=== PATIENT | female | born 1960 | race Caucasian/White ===

== ENCOUNTER 2016-08-05 15:47 | Emergency (ER) | payer SELFPAY ==
[2016-08-05] MEDS ORDERED: Famotidine 20 MG/2 ML SDV IVPUSH ONE (16:09)
[2016-08-05] MEDS ORDERED: Aspirin 81 MG Tab.Chew PO ONE (16:09)
[2016-08-05] MEDS ORDERED: Sodium Chloride 0.9% 2.5 ML Syringe FLUSH PRN ×2 (16:09)
[2016-08-05] MEDS ORDERED: Sodium Chloride 0.9% 10 ML Syringe FLUSH PRN (16:09)
[2016-08-05] MEDS ORDERED: Nitroglycerin 0.4 MG Tab.SL ONE (16:11)
--- NOTE | 2016-08-05 16:11 | EDM.PDOC ---
ED HPI GENERAL MEDICAL PROBLEM - General Chief Complaint: Chest Pain Stated Complaint: CP Time Seen by Provider: 08/05/16 15:59 - History of Present Illness INITIAL COMMENTS - FREE TEXT/NARRATIVE: HISTORY AND PHYSICAL: History of present illness: The patient is a 56-year-old female with a history of hypertension and who has had several ER visits here in admissions for chest pain and presents with complaints of pain just to the left of her sternum which started about an hour ago while at rest. The patient states that 2 hours ago she had 2 episodes of small vomiting and did not have any associated abdominal pain shortness of breath or chest pain with that. She is not sure if she ate something to upset her stomach. She currently only feels slightly nauseated with the chest pain but she has no shortness of breath or diaphoresis. She says this is very typical of her usual chest pain for which I have seen her back in April of 2014 in the ER as well as being seen in December of 2015. The patient has followed up with the online activist at [facility] Dr. Smiley and she states he is supposed to schedule an outpatient chemical stress test with him. She last saw him in March of this year and states that he said everything was going well but wanted to do the stress test. The patient has had 2 heart caths in the past the last one in 2011 both of which she reports as negative. The patient states that she still gets episodic chest pain and has had that on a regular basis and has nitroglycerin that she uses at home if needed. The patient 's recent trauma or upper respiratory symptoms which he describes the discomfort to me as for its its location and character she states is the same chest pain she always has and there is nothing new or different about it. She has no leg pain or swelling. The patient is still smoking cigarettes but has cut back to half pack a day and denies social drug use. Currently she rates the pain as a 6/10 and she states that she did take 2 sublingual nitros prior to coming here. Review of systems: As per history of present illness and below otherwise all systems reviewed and negative. Past medical history: As per history of present illness and as reviewed below otherwise noncontributory. Surgical history: As per history of present illness and as reviewed below otherwise noncontributory. Social history: No reported history of drug or alcohol abuse. Family history: As per history of present illness and as reviewed below otherwise noncontributory. Physical exam: General: Well-developed well-nourished female who is nontoxic and speaking clearly and easily in the ED. This has been notified of these HEENT: Atraumatic, normocephalic, negative for conjunctival pallor or scleral icterus, mucous membranes moist, throat clear, neck supple, nontender, trachea midline. Lungs: Clear to auscultation, breath sounds equal bilaterally, chest nontender. Heart: S1S2, regular, negative for clicks, rubs, or JVD. Abdomen: Soft, nondistended, nontender. Negative for masses or hepatosplenomegaly. Negative for costovertebral tenderness. Pelvis: Stable nontender. Genitourinary: Deferred. Rectal: Deferred. Extremities: Atraumatic, negative for cords or calf pain. Neurovascular unremarkable. No pedal edema Neuro: Awake, alert, oriented. Cranial nerves II through XII unremarkable. Cerebellum unremarkable. Motor and sensory unremarkable throughout. Exam nonfocal. Diagnostics: EKG--today's was compared with one done in December of 2015 and revealed no changes from the old one Chest x-ray CBC CMP amylase lipase troponin Therapeutics: Aspirin sublingual nitroglycerin IV O2 monitor 1720: The patient was pain-free after 3 sublingual nitros and I discussed testing results with the patient. At this point the patient is aware of her negative lab testing and I offered her observation admission which she is declining at this time. She states that she would rather go home and followup with either Dr. Smiley or her provider at [facility]. I stressed to her my concerns about this repeated behavior of coming to the ER for chest pain getting a workup and then not staying to complete the workup appropriately and she states understanding. She also is aware of my concerns about the next 12 to 24-hour is by going home and she accepts those concerns. We discussed the risk factors of this choice and she accepts them. Advised her to call make followup arrangements and to return here as needed. Patient is with daughter at bedside. Impression: Chest pain refusing admission with history of angina Definitive disposition and diagnosis as appropriate pending reevaluation and review of above. Mid-Sternal Chest Pain Score (Numeric/FACES): 7 - Related Data Allergies Allergy/AdvReac Type Severity Reaction Status Date / Time Penicillins Allergy Hives Verified 08/05/16 16:01 nickel Allergy Hives Uncoded 12/01/14 10:18 Home Meds: Home Meds Aspirin [Halfprin] 81 mg PO DAILY 04/24/14 [History] Metoprolol Succinate [Toprol XL] 25 mg PO DAILY 08/05/16 [History] Past Medical History Cardiovascular History: Reports: High Cholesterol, Hypertension, SD Respiratory History: Reports: None Gastrointestinal History: Reports: None Genitourinary History: Reports: Renal Calculus, UTI, Recurrent INSURANCE PROFESSIONAL History: Reports: None Musculoskeletal History: Reports: Amputation Other Neuro History: 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 Psychiatric History: Reports: None Endocrine/Metabolic History: Reports: None Dermatologic History: Reports: None - Infectious Disease History Infectious Disease History: Reports: Chicken Pox - Past Surgical History HEENT Surgical History: Reports: Tonsillectomy Female Surgical History: Reports: Section, Hysterectomy Other Musculoskeletal Surgeries/Procedures:: ankle surgery Social & Family History - Family History Family Medical History: Noncontributory - Tobacco Use Smoking Status *Q: Current Every Day Smoker Years of Tobacco use: 40 Packs/Tins Daily: 0.5 Used Tobacco, but Quit: No Second Hand Smoke Exposure: No - Caffeine Use Caffeine Use: Reports: None - Alcohol Use Days Per Week of Alcohol Use: 5 Number of Drinks Per Day: 4 Total Drinks Per Week: 20 - Recreational Drug Use Recreational Drug Use: No Drug Use in Last 12 Months: No ED ROS GENERAL - Review of Systems Review Of Systems: ROS reveals no pertinent complaints other than HPI. ED EXAM, GENERAL - Physical Exam Exam: See Below (See dictation) Course - Vital Signs Last Recorded V/S: Last Vital Signs Temp 36.1 C 08/05/16 15:55 Pulse 58 L 08/05/16 17:14 Resp 16 08/05/16 17:14 BP 131/66 08/05/16 17:14 Pulse Ox 94 L 08/05/16 17:14 - Orders/Labs/Meds Orders: Active Orders 24 hr Category Date Time Status Cardiac Monitoring [RC] . DIRECTED Care 08/05/16 16:09 Active EKG Documentation Completion [RC] STAT Care 08/05/16 16:09 Active Oxygen Therapy [RC] ASDIRECTED Care 08/05/16 16:09 Active Pulse Oximetry [RC] ASDIRECTED Care 08/05/16 16:09 Active Chest 1V Frontal [CR] Stat Exams 08/05/16 16:09 Taken Sodium Chloride 0.9% [Normal Saline] 1,000 ml Med 08/05/16 16:20 Active IV ASDIRECTED Sodium Chloride 0.9% [Saline Flush] Med 08/05/16 16:09 Active 10 ml FLUSH ASDIRECTED PRN Sodium Chloride 0.9% [Saline Flush] Med 08/05/16 16:09 Active 2.5 ml FLUSH ASDIRECTED PRN Sodium Chloride 0.9% [Saline Flush] Med 08/05/16 16:09 Active 2.5 ml FLUSH ASDIRECTED PRN Saline Lock Insert [OM.PC] Stat Oth 08/05/16 16:09 Ordered Medication Orders Sodium Chloride (Normal Saline) 1,000 mls @ 999 mls/hr IV ASDIRECTED STEFFI Last Admin: 08/05/16 16:25 Dose: 999 mls/hr Sodium Chloride (Saline Flush) 2.5 ml FLUSH ASDIRECTED PRN PRN Reason: Keep Vein Open Sodium Chloride (Saline Flush) 10 ml FLUSH ASDIRECTED PRN PRN Reason: Keep Vein Open Sodium Chloride (Saline Flush) 2.5 ml FLUSH ASDIRECTED PRN PRN Reason: Keep Vein Open Labs: Laboratory Tests 08/05/16 08/05/16 08/05/16 Range/Units 15:53 15:53 15:53 WBC 8.32 (4.0-11.0) K/uL RBC 4.57 (4.30-5.90) M/uL Hgb 15.1 (12.0-16.0) g/dL Hct 45.2 (36.0-46.0) % MCV 98.9 H (80.0-98.0) fL MCH 33.0 H (27.0-32.0) pg MCHC 33.4 (31.0-37.0) g/dL RDW Std Deviation 47.2 (28.0-62.0) fl RDW Coeff of Dorian 13 (11.0-15.0) % Plt Count 263 (150-400) K/uL MPV 10.40 (7.40-12.00) fL Neut % (Auto) 68.0 (48.0-80.0) % Lymph % (Auto) 22.1 (16.0-40.0) % [place] % (Auto) 7.2 (0.0-15.0) % Eos % (Auto) 2.5 (0.0-7.0) % Baso % (Auto) 0.2 (0.0-1.5) % Neut # (Auto) 5.7 (1.4-5.7) K/uL Lymph # (Auto) 1.8 (0.6-2.4) K/uL [place] # (Auto) 0.6 (0.0-0.8) K/uL Eos # (Auto) 0.2 (0.0-0.7) K/uL Baso # (Auto) 0.0 (0.0-0.1) K/uL Nucleated RBC % 0.0 /100WBC Nucleated RBCs # 0 K/uL Sodium 140 (136-146) mmol/L Potassium 3.9 (3.5-5.1) mmol/L Chloride 108 (98-110) mmol/L Carbon Dioxide 22 (21-31) mmol/L BUN 8 (6.0-23.0) mg/dL Creatinine 0.9 (0.6-1.5) mg/dL Est Cr Clr Drug Dosing 62.80 mL/min Estimated GFR (MDRD) > 60.0 ml/min Glucose 115 H (60-110) mg/dL Calcium 9.5 (8.8-10.8) mg/dL Total Bilirubin 0.4 (0.1-1.5) mg/dL AST 23 (5-40) IU/L ALT 20 (8-54) IU/L Alkaline Phosphatase 84 (40-150) Troponin I < 0.10 (0.0-0.29) NG/ML Total Protein 6.9 (6.0-8.0) g/dL Albumin 4.3 (3.5-5.0) g/dL Globulin 2.6 (2.0-3.5) g/dL Albumin/Globulin Ratio 1.7 (1.3-2.8) Amylase 50 (10-90) U/L Lipase 31 (7-80) U/L Meds: Medications Generic Name Dose Route Start Last Admin Trade Name Freq PRN Reason Stop Dose Admin Sodium Chloride 1,000 mls @ 999 mls/hr 08/05/16 16:20 08/05/16 16:25 Normal Saline IV 999 mls/hr ASDIRECTED STEFFI Administration Sodium Chloride 2.5 ml 08/05/16 16:09 Saline Flush FLUSH ASDIRECTED PRN Keep Vein Open Sodium Chloride 10 ml 08/05/16 16:09 Saline Flush FLUSH ASDIRECTED PRN Keep Vein Open Sodium Chloride 2.5 ml 08/05/16 16:09 Saline Flush FLUSH ASDIRECTED PRN Keep Vein Open Discontinued Medications Generic Name Dose Route Start Last Admin Trade Name Freq PRN Reason Stop Dose Admin Aspirin 324 mg 08/05/16 16:09 08/05/16 16:16 Aspirin PO 08/05/16 16:10 324 mg ONETIME ONE Administration Aspirin Confirm 08/05/16 16:12 08/05/16 16:19 Aspirin Administered 08/05/16 16:13 Not Given Dose 324 mg .ROUTE .STK-MED ONE Famotidine 20 mg 08/05/16 16:09 08/05/16 16:33 Pepcid IVPUSH 08/05/16 16:10 20 mg ONETIME ONE Administration Nitroglycerin 0.4 mg 08/05/16 16:09 08/05/16 17:06 Nitrostat SL 08/05/16 16:10 0.4 mg ONETIME ONE Administration Nitroglycerin Confirm 08/05/16 16:11 08/05/16 16:19 Nitrostat Administered 08/05/16 16:12 Not Given Dose 0.4 mg .ROUTE .STK-MED ONE Nitroglycerin 0.5 gm 08/05/16 17:16 Nitro-Bid 2% TOP 08/05/16 17:17 ONETIME ONE Departure - Departure Time of Disposition: 17:30 Disposition: Home, Self-Care 01 Condition: good Clinical Impression: Anginal chest pain at rest, Care refused by patient - Discharge Information Forms: ED Department Discharge Additional Instructions: The following information is given to patients seen in the emergency department who are being discharged to home. This information is to outline your options for follow-up care. We provide all patients seen in our emergency department with a follow-up referral. The need for follow-up, as well as the timing and circumstances, are variable depending upon the specifics of your emergency department visit. If you don't have a primary care physician on staff, we will provide you with a referral. We always advise you to contact your personal physician following an emergency department visit to inform them of the circumstance of the visit and for follow-up with them and/or the need for any referrals to a consulting specialist. The emergency department will also refer you to a specialist when appropriate. This referral assures that you have the opportunity for followup care with a specialist. All of these measure are taken in an effort to provide you with optimal care, which includes your followup. Under all circumstances we always encourage you to contact your private physician who remains a resource for coordinating your care. When calling for followup care, please make the office aware that this follow-up is from your recent emergency room visit. If for any reason you are refused follow-up, please contact the emergency department at and ask to speak to the emergency department charge nurse. [address] [place] [address] Please continue all your home medications and call and followup with her provider at [facility] as well as your online activist. Return to ER as needed and as discussed - My Orders Last 24 Hours: My Active Orders 08/05/16 16:09 Cardiac Monitoring [RC] . DIRECTED EKG Documentation Completion [RC] STAT Oxygen Therapy [RC] ASDIRECTED Pulse Oximetry [RC] ASDIRECTED Chest 1V Frontal [CR] Stat Sodium Chloride 0.9% [Saline Flush] 10 ml FLUSH ASDIRECTED PRN Sodium Chloride 0.9% [Saline Flush] 2.5 ml FLUSH ASDIRECTED PRN Sodium Chloride 0.9% [Saline Flush] 2.5 ml FLUSH ASDIRECTED PRN Saline Lock Insert [OM.PC] Stat 08/05/16 16:20 Sodium Chloride 0.9% [Normal Saline] 1,000 ml IV ASDIRECTED - Assessment/Plan Last 24 Hours: My Active Orders 08/05/16 16:09 Cardiac Monitoring [RC] . DIRECTED EKG Documentation Completion [RC] STAT Oxygen Therapy [RC] ASDIRECTED Pulse Oximetry [RC] ASDIRECTED Chest 1V Frontal [CR] Stat Sodium Chloride 0.9% [Saline Flush] 10 ml FLUSH ASDIRECTED PRN Sodium Chloride 0.9% [Saline Flush] 2.5 ml FLUSH ASDIRECTED PRN Sodium Chloride 0.9% [Saline Flush] 2.5 ml FLUSH ASDIRECTED PRN Saline Lock Insert [OM.PC] Stat 08/05/16 16:20 Sodium Chloride 0.9% [Normal Saline] 1,000 ml IV ASDIRECTED
[2016-08-05] MEDS ORDERED: Aspirin 81 MG Tab.Chew ONE (16:12)
[2016-08-05] MEDS: Nitroglycerin 0.4 MG Tab.SL SL ONE ×3 (16:17→17:06)
[2016-08-05] MEDS ORDERED: Sodium Chloride 0.9% 1,000 ML IV SCH (16:20)
[2016-08-05 16:35] LABS: CHLORIDE,CL 108 mmol/L (98-110); SODIUM,NA 140 mmol/L (136-146)
[2016-08-05] MEDS ORDERED: Nitroglycerin 2% Oint 1 GM UD Packet TOP ONE (17:16)
[2016-08-05 17:56] VITALS: BP 125/69
--- NOTE | 2016-08-06 10:13 | CR ---
EXAM DATE: 08/05/16 PATIENT'S AGE: 56 Patient: JIA DIEGO Facility: [place], [place] Site . Site : [id number] Study: XRay Chest [id number]/16/2017 4:57:38 PM Ordering Physician: Horacio Dumont Final Report: INDICATION: Chest pain. TECHNIQUE: Chest radiograph 1 view COMPARISON: 01/06/2016. FINDINGS: Cardiovascular and mediastinum: The heart silhouette is normal in size and morphology. The mediastinum is normal in appearance. Lungs and pleural spaces: Both lungs are unremarkable in appearance. No sign of pleural effusion seen. No pneumothorax is identified. Bones and soft tissues: No significant findings. IMPRESSION: 1. Negative chest. Dictated by Sumanth Sharma MD @ 08/05/2016 5:04:43 PM Dictated by: Sumanth Sharma MD @ 08/05/2016 17:04:49 (Electronic Signature) Report Signed by Proxy. [facility]
== END 2016-08-05 17:45 | disposition home or self-care (01) ==
LOC: MW.ED 15:47
DX: R07.2 Precordial pain (principal); E78.00 Pure hypercholesterolemia, unspecified; I10 Essential (primary) hypertension; I25.2 Old myocardial infarction; F17.210 Nicotine dependence, cigarettes, uncomplicated; Z88.0 Allergy status to penicillin; Z91.048 Other nonmedicinal substance allergy status; Z79.82 Long term (current) use of aspirin; Z79.899 Other long term (current) drug therapy; Z87.440 Personal history of urinary (tract) infections; Z98.890 Other specified postprocedural states; Z90.710 Acquired absence of both cervix and uterus
CPT/HCPCS: 36415; 71010; 80053; 82150; 83690; 84484; 85025; 93005; 96361; 96374; 99285; A9270; J7040

== ENCOUNTER 2021-10-21 08:31 | Emergency (ER) | payer MEDICAID ==
[2021-10-21] MEDS ORDERED: Sodium Chloride 0.9% 1,000 ML IV ONE (08:39)
[2021-10-21] MEDS ORDERED: Aspirin 81 MG Tab.Chew PO ONE (08:39)
[2021-10-21] MEDS ORDERED: Diltiazem 50 MG/10 ML SDV IVPUSH ONE (08:40)
[2021-10-21] MEDS ORDERED: Diltiazem 25 MG/5 ML SDV IVPUSH ONE (08:45)
[2021-10-21] MEDS ORDERED: Diltiazem IR 60 MG Tab PO ONE (09:04)
[2021-10-21 09:48] LABS: CARBON DIOXIDE,CO2 23.3 mmol/L (21.0-32.0); POTASSIUM,K 3.8 mmol/L (3.5-5.1)
[2021-10-21] MEDS ORDERED: Enoxaparin 60 MG/0.6 ML Syringe SUBCUT ONE (10:11)
[2021-10-21] MEDS ORDERED: Iopamidol 755 MG/ML 500 ML Multipack Bottle IVPUSH STA (10:50)
[2021-10-21 13:59] VITALS: BP 126/52; PULSE 52
== END 2021-10-21 13:59 | disposition left against medical advice (07) ==
LOC: MW.ED 08:31
DX: I48.91 Unspecified atrial fibrillation (principal); E78.00 Pure hypercholesterolemia, unspecified; I10 Essential (primary) hypertension; I25.2 Old myocardial infarction; Z86.73 Personal history of transient ischemic attack (TIA), and cerebral infarction without residual deficits; Z88.0 Allergy status to penicillin; Z91.048 Other nonmedicinal substance allergy status; Z79.82 Long term (current) use of aspirin; Z20.822 Contact with and (suspected) exposure to COVID-19
CPT/HCPCS: 36415; 71045; 71275; 80053; 83735; 83880; 84443; 84484; 85025; 85610; 85730; 87635; 93005; 96361; 96372; 96374; 99285; A9270; J1650; J3490; J7030; Q9967; 93010; 99284; U0002

== ENCOUNTER 2021-11-12 11:12 | Emergency (ER) | payer MEDICAID ==
[2021-11-12] MEDS ORDERED: Sodium Chloride 0.9% 2.5 ML Syringe FLUSH PRN (11:13)
[2021-11-12] MEDS ORDERED: Sodium Chloride 0.9% 10 ML Syringe FLUSH PRN (11:13)
[2021-11-12] MEDS ORDERED: Sodium Chloride 0.9% 1,000 ML IV ONE (11:15)
[2021-11-12] MEDS ORDERED: Ondansetron 4 MG/2 ML SDV IVPUSH ONE (11:15)
[2021-11-12] MEDS ORDERED: Ondansetron 4 MG/2 ML SDV ONE (11:15)
[2021-11-12 11:24] VITALS: BP 147/84; PULSE 90
[2021-11-12] MEDS ORDERED: Tenecteplase 50 MG Kit IV ONE (11:26)
[2021-11-12] MEDS ORDERED: Aspirin 81 MG Tab.Chew PO ONE (11:44)
[2021-11-12 12:06] LABS: BLOOD UREA NITROGEN,BUN 7 mg/dL (7.0-18.0); CARBON DIOXIDE,CO2 19.5 mmol/L (21.0-32.0); CHLORIDE,CL 98 mmol/L (98-107); GLUCOSE RANDOM 280 mg/dL (74-106); POTASSIUM,K 3.8 mmol/L (3.5-5.1); SODIUM,NA 133 mmol/L (136-145)
[2021-11-12 12:09] LABS: ESTIMATED GFR 57 mL/min (>60)
== END 2021-11-12 12:10 ==
LOC: MW.ED 11:12
DX: I46.9 Cardiac arrest, cause unspecified (principal); I48.91 Unspecified atrial fibrillation; I21.3 ST elevation (STEMI) myocardial infarction of unspecified site; E78.00 Pure hypercholesterolemia, unspecified; I10 Essential (primary) hypertension; I25.2 Old myocardial infarction; Z79.82 Long term (current) use of aspirin; Z79.01 Long term (current) use of anticoagulants; Z86.73 Personal history of transient ischemic attack (TIA), and cerebral infarction without residual deficits; Z20.822 Contact with and (suspected) exposure to COVID-19; Z88.0 Allergy status to penicillin; Z91.048 Other nonmedicinal substance allergy status
CPT/HCPCS: 36415; 71045; 80053; 80307; 83605; 83880; 84484; 85025; 85610; 87040; 87635; 92977; 96374; 99291; A9270; J2405; J3101; J3490; J7030; 93010; U0002

== ENCOUNTER 2021-11-24 23:11 | Emergency (ER) | payer MEDICAID | END 2021-11-25 00:15 | disposition left against medical advice (07) | LOC: MW.ED 23:11 | DX: Z53.21 Procedure and treatment not carried out due to patient leaving prior to being seen by health care provider (principal) ==

== ENCOUNTER 2021-12-18 05:58 | Emergency (ER) | payer MEDICAID ==
[2021-12-18 06:23] VITALS: BP 149/82; PULSE 65
[2021-12-18] MEDS ORDERED: Sodium Chloride 0.9% 10 ML Syringe FLUSH PRN (06:59)
[2021-12-18] MEDS ORDERED: Sodium Chloride 0.9% 2.5 ML Syringe FLUSH PRN (06:59)
[2021-12-18 07:26] LABS: CARBON DIOXIDE,CO2 25.6 mmol/L (21.0-32.0); POTASSIUM,K 3.7 mmol/L (3.5-5.1)
== END 2021-12-18 08:54 | disposition home or self-care (01) ==
LOC: MW.ED 05:58
DX: R11.2 Nausea with vomiting, unspecified (principal); I10 Essential (primary) hypertension; I25.2 Old myocardial infarction; Z88.0 Allergy status to penicillin; Z91.048 Other nonmedicinal substance allergy status; Z87.891 Personal history of nicotine dependence
CPT/HCPCS: 36415; 80053; 83690; 85025; 93005; 93010; 99284; 99285

== ENCOUNTER 2022-02-15 05:39 | Emergency (ER) | payer MEDICAID ==
[2022-02-15] MEDS ORDERED: Sodium Chloride 0.9% 1,000 ML IV ONE (07:39)
[2022-02-15] MEDS ORDERED: Sodium Chloride 0.9% 10 ML Syringe FLUSH PRN (07:39)
[2022-02-15] MEDS ORDERED: Sodium Chloride 0.9% 2.5 ML Syringe FLUSH PRN (07:39)
[2022-02-15] MEDS ORDERED: Ondansetron 4 MG/2 ML SDV IVPUSH ONE (07:39)
[2022-02-15 08:48] LABS: CORONAVIRUS COVID-19 NAA POSITIVE (NEGATIVE); INFLUENZA A NAA NEGATIVE (NEGATIVE); INFLUENZA B NAA NEGATIVE (NEGATIVE); RESPIRATORY SYNCYTIAL VIR NAA NEGATIVE (NEGATIVE)
[2022-02-15 08:54] LABS: CARBON DIOXIDE,CO2 19.4 mmol/L (21.0-32.0); POTASSIUM,K 4.1 mmol/L (3.5-5.1)
[2022-02-15 09:37] VITALS: BP 109/67; PULSE 61
== END 2022-02-15 09:37 | disposition home or self-care (01) ==
LOC: MW.ED 05:39
DX: U07.1 COVID-19 (principal); E86.0 Dehydration; E78.00 Pure hypercholesterolemia, unspecified; I10 Essential (primary) hypertension; I25.2 Old myocardial infarction; Z87.891 Personal history of nicotine dependence; Z88.0 Allergy status to penicillin; Z91.048 Other nonmedicinal substance allergy status; Z79.02 Long term (current) use of antithrombotics/antiplatelets; Z79.899 Other long term (current) drug therapy
CPT/HCPCS: 0241U; 36415; 74176; 80053; 83605; 83690; 85025; 96361; 96374; 99284; J2405; J3490; J7030

== ENCOUNTER 2022-03-06 16:28 | Observation (INO) | payer MEDICAID, OTHER ==
[2022-03-06] MEDS ORDERED: Sodium Chloride 0.9% 10 ML Syringe FLUSH PRN (16:33)
[2022-03-06] MEDS ORDERED: Sodium Chloride 0.9% 2.5 ML Syringe FLUSH PRN (16:33)
[2022-03-06 17:10] LABS: POTASSIUM,K 3.6 mmol/L (3.5-5.1)
[2022-03-06] MEDS ORDERED: Furosemide 40 MG/4 ML VIAL IVPUSH ONE (17:37)
[2022-03-06 17:42] LABS: CORONAVIRUS COVID-19 NAA POSITIVE (NEGATIVE); INFLUENZA A NAA NEGATIVE (NEGATIVE); INFLUENZA B NAA NEGATIVE (NEGATIVE); RESPIRATORY SYNCYTIAL VIR NAA NEGATIVE (NEGATIVE)
[2022-03-06] MEDS ORDERED: Isosorbide Dinitrate 10 MG Tab PO ONE (20:27)
[2022-03-06] MEDS ORDERED: Acetaminophen 500 MG Tab PO ONE (21:42)
[2022-03-07] MEDS ORDERED: LORazepam 2 MG/ML SDV IVPUSH ONE (01:02)
[2022-03-07] MEDS ORDERED: Furosemide 40 MG/4 ML VIAL IV SCH (08:30)
[2022-03-07 10:24] VITALS: PULSE 74
[2022-03-07] MEDS ORDERED: Clopidogrel 75 MG Tab PO SCH (11:00)
[2022-03-07] MEDS ORDERED: Losartan 50 MG Tab PO SCH (11:00)
[2022-03-07] MEDS ORDERED: Isosorbide Dinitrate 10 MG Tab PO SCH (11:00)
[2022-03-07 11:47] VITALS: BP 154/70
== END 2022-03-07 14:00 | disposition home or self-care (01) ==
LOC: MW.ED 16:28 → MW.MS 20:59
PROVIDERS: ADMIT Student in an Organized Health Care Education/Training Program; ATTEND Student in an Organized Health Care Education/Training Program
DX: I11.0 Hypertensive heart disease with heart failure (principal); I50.9 Heart failure, unspecified; I25.10 Atherosclerotic heart disease of native coronary artery without angina pectoris; I25.2 Old myocardial infarction; E78.5 Hyperlipidemia, unspecified; Z95.5 Presence of coronary angioplasty implant and graft; Z86.010 Personal history of colon polyps; Z90.09 Acquired absence of other part of head and neck; Z90.710 Acquired absence of both cervix and uterus; Z98.890 Other specified postprocedural states; Z79.899 Other long term (current) drug therapy; Z79.02 Long term (current) use of antithrombotics/antiplatelets; Z87.891 Personal history of nicotine dependence; Z20.822 Contact with and (suspected) exposure to COVID-19; Z95.810 Presence of automatic (implantable) cardiac defibrillator
CPT/HCPCS: 0241U; 36415; 71045; 80053; 83880; 84484; 85025; 93005; 93306; 96374; 96376; 99285; A9270; G0378; J1940; J3490

== ENCOUNTER 2022-05-03 12:50 | Emergency (ER) | payer MEDICAID ==
[2022-05-03 15:15] VITALS: BP 112/54; PULSE 57
== END 2022-05-03 15:16 | disposition home or self-care (01) ==
LOC: MW.ED 12:50
DX: S90.32XA Contusion of left foot, initial encounter (principal); I25.10 Atherosclerotic heart disease of native coronary artery without angina pectoris; E78.00 Pure hypercholesterolemia, unspecified; I10 Essential (primary) hypertension; I25.2 Old myocardial infarction; Z79.01 Long term (current) use of anticoagulants; Z88.0 Allergy status to penicillin; Z91.048 Other nonmedicinal substance allergy status; Z79.02 Long term (current) use of antithrombotics/antiplatelets; Z79.899 Other long term (current) drug therapy; W10.9XXA Fall (on) (from) unspecified stairs and steps, initial encounter
CPT/HCPCS: 73610-26-RT; 73610-RT; 73630-26-RT; 73630-RT; 99284

== ENCOUNTER 2022-05-04 11:36 | Emergency (ER) | payer MEDICAID ==
[2022-05-04 11:48] VITALS: PULSE 51
[2022-05-04 12:43] LABS: CARBON DIOXIDE,CO2 28.2 mmol/L (21.0-32.0); POTASSIUM,K 4.2 mmol/L (3.5-5.1)
[2022-05-04 13:30] VITALS: BP 100/50
== END 2022-05-04 13:37 | disposition home or self-care (01) ==
LOC: MW.ED 11:36
DX: K62.5 Hemorrhage of anus and rectum (principal); K64.4 Residual hemorrhoidal skin tags; I25.10 Atherosclerotic heart disease of native coronary artery without angina pectoris; E78.00 Pure hypercholesterolemia, unspecified; I10 Essential (primary) hypertension; I25.2 Old myocardial infarction; Z88.0 Allergy status to penicillin; Z91.048 Other nonmedicinal substance allergy status; Z79.02 Long term (current) use of antithrombotics/antiplatelets; Z79.01 Long term (current) use of anticoagulants; Z79.899 Other long term (current) drug therapy
CPT/HCPCS: 36415; 80053; 83735; 83880; 85025; 93005; 99285

== ENCOUNTER 2022-06-17 19:26 | Inpatient (IN) | payer MEDICAID ==
[2022-06-17] MEDS ORDERED: Sodium Chloride 0.9% 10 ML Syringe FLUSH PRN (19:36)
[2022-06-17] MEDS ORDERED: Sodium Chloride 0.9% 2.5 ML Syringe FLUSH PRN (19:36)
[2022-06-17] MEDS ORDERED: Diltiazem 25 MG/5 ML SDV IVPUSH ONE (19:38)
[2022-06-17] MEDS ORDERED: Sodium Chloride 0.9% 500 ML IV SCH (19:45)
[2022-06-17] MEDS ORDERED: Diltiazem 100 MG in Sodium Chloride 0.9% 100 ML IV SCH (19:45)
[2022-06-17 20:19] LABS: POTASSIUM,K 3.3 mmol/L (3.5-5.1)
[2022-06-17 20:40] LABS: CARBON DIOXIDE,CO2 27.1 mmol/L (21.0-32.0)
[2022-06-17] MEDS ORDERED: Morphine 4 MG/ML Syringe IVPUSH ONE (20:54)
[2022-06-17] MEDS ORDERED: Ondansetron 4 MG/2 ML SDV ONE (21:01)
[2022-06-17] MEDS ORDERED: Ondansetron 4 MG/2 ML SDV IVPUSH ONE (21:02)
[2022-06-17] MEDS ORDERED: Sodium Chloride 0.9% 1,000 ML IV ONE (23:02)
[2022-06-17] MEDS ORDERED: Potassium Chloride 20 MEQ Tab.ER PO ONE (23:14)
[2022-06-17] MEDS ORDERED: LORazepam 2 MG/ML SDV IVPUSH PRN (23:36)
[2022-06-17] MEDS ORDERED: Potassium Chloride 10% 20 MEQ/15 ML Soln 15 ML UD Cup PO ONE (23:49)
[2022-06-17] MEDS: Thiamine 200 MG/2 ML MDV IVPUSH SCH (23:51)
[2022-06-18 06:18] LABS: CARBON DIOXIDE,CO2 27.1 mmol/L (21.0-32.0); POTASSIUM,K 4.3 mmol/L (3.5-5.1)
[2022-06-18] MEDS: Folic Acid 1 MG Tab PO SCH (09:15)
[2022-06-18] MEDS: Clopidogrel 75 MG Tab PO SCH (09:15)
[2022-06-18] MEDS: Thiamine 200 MG/2 ML MDV IVPUSH SCH (09:15)
[2022-06-18] MEDS: Fluticasone/Salmeterol 250-50 MCG Inhalation Powder 14/Diskus INH SCH ×2 (09:40→20:01)
[2022-06-18] MEDS: Metoprolol Succinate 50 MG Tab.ER PO SCH ×2 (14:18→16:24)
[2022-06-18 16:34] VITALS: PULSE 82
[2022-06-18] MEDS ORDERED: Rivaroxaban 10 MG Tab PO SCH (18:00)
[2022-06-18] MEDS: Acetaminophen 325 MG Tab PO PRN (18:35)
[2022-06-18] MEDS ORDERED: atorvaSTATin 40 MG Tab PO SCH (21:00)
[2022-06-19 07:24] LABS: CARBON DIOXIDE,CO2 26.8 mmol/L (21.0-32.0)
[2022-06-19] MEDS: Acetaminophen 325 MG Tab PO PRN (08:15)
[2022-06-19] MEDS: Clopidogrel 75 MG Tab PO SCH (08:16)
[2022-06-19] MEDS: Thiamine 200 MG/2 ML MDV IVPUSH SCH (08:17)
[2022-06-19] MEDS: Folic Acid 1 MG Tab PO SCH (08:17)
[2022-06-19] MEDS: Metoprolol Succinate 50 MG Tab.ER PO SCH (10:24)
[2022-06-19] MEDS: Fluticasone/Salmeterol 250-50 MCG Inhalation Powder 14/Diskus INH SCH (10:28)
[2022-06-19 11:06] VITALS: BP 128/67
== END 2022-06-19 12:20 | disposition home or self-care (01) | DRG 309 ==
LOC: MW.ED 19:26 → MW.ICU 21:16
PROVIDERS: ADMIT Internal Medicine; ATTEND Internal Medicine
DX: I48.91 Unspecified atrial fibrillation (principal); F10.239 Alcohol dependence with withdrawal, unspecified; I24.8 Other forms of acute ischemic heart disease; I50.9 Heart failure, unspecified; I11.0 Hypertensive heart disease with heart failure; I25.10 Atherosclerotic heart disease of native coronary artery without angina pectoris; E78.00 Pure hypercholesterolemia, unspecified; F41.9 Anxiety disorder, unspecified; I25.2 Old myocardial infarction; Z95.5 Presence of coronary angioplasty implant and graft; Z88.0 Allergy status to penicillin; Z88.8 Allergy status to other drugs, medicaments and biological substances; Z79.899 Other long term (current) drug therapy; Z86.010 Personal history of colon polyps; Z98.890 Other specified postprocedural states; Z87.442 Personal history of urinary calculi; Z90.710 Acquired absence of both cervix and uterus; Z82.49 Family history of ischemic heart disease and other diseases of the circulatory system; Z79.01 Long term (current) use of anticoagulants
CPT/HCPCS: 36415; 71045; 71045-26; 80048; 80053; 81003; 82947; 83690; 83735; 84443; 84484; 85025; 93005; 93246; 96374; 96375; 99285-25; A9270-GY; J2270; J2405; J3411; J3490; J7040; J7050